=== PATIENT | female | born 1985 | race Caucasian/White ===

== ENCOUNTER → 2020-07-29 | Outpatient (CLI) | payer OTHER ==
[~2020-07-29] MED LIST: CEPHALEXIN500 MG PO; HYDROCODON-ACE1 EAC4 PO; NAPROSYN EC 50500 MG PO; XARELTO10 MG PO
[2020-07-29 10:49] LABS: HEMOGLOBIN 12.4 gm/dl (12.3-15.3); RED BLOOD COUNT 5.08 M/UL (4.00-5.10); WHITE BLOOD COUNT 6.2 K/UL (4.5-11.0)
== END ==
LOC: OPSV2 10:00
PROVIDERS: Obstetrics & Gynecology
DX: Z01.812 Encounter for preprocedural laboratory examination (principal); N81.6 Rectocele
CPT/HCPCS: 36415; 81001; 85025

== ENCOUNTER 2020-08-03 11:32 | Day surgery (SDC) | payer OTHER ==
[~2020-08-03] VITALS: Ht 165.1 cm; Wt 68.0 kg
[2020-08-03] MEDS ORDERED: HYDROCODON-ACE1 EAC4 PO (16:33)
[2020-08-03] MEDS ORDERED: NAPROSYN EC 50500 MG PO (16:33)
--- NOTE | 2020-08-03 19:42 | NUR ---
IS GIVEN,PATIENT REACHED 1500ML, INSTRUCTED TO USE Q1H 10X WA. BILAT CALF SCDs PLACED ON.
[2020-08-04 04:23] LABS: HEMOGLOBIN 11.3 gm/dl (12.3-15.3)
[2020-08-04] MEDS ORDERED: XARELTO10 MG PO (08:03)
[2020-08-04] MEDS ORDERED: CEPHALEXIN500 MG PO (08:12)
== END 2020-08-04 11:25 | disposition home or self-care (01) ==
LOC: OR 11:32 → MED SURG 4 17:29 → OR 08-04 11:25
PROVIDERS: Obstetrics & Gynecology
PROC: 0JQC0ZZ Repair Pelvic Region Subcutaneous Tissue and Fascia, Open Approach (ICD-10-PCS; principal; 2020-08-03 13:00)
PROC: 0UBMXZZ Excision of Vulva, External Approach (ICD-10-PCS; 2020-08-03 13:00)
PROC: 3E0T3BZ Introduction of Anesthetic Agent into Peripheral Nerves and Plexi, Percutaneous Approach (ICD-10-PCS; 2020-08-03 13:00)
DX: N81.6 Rectocele (principal); N90.60 Unspecified hypertrophy of vulva; K46.9 Unspecified abdominal hernia without obstruction or gangrene; N89.8 Other specified noninflammatory disorders of vagina; G89.18 Other acute postprocedural pain; Z20.822 Contact with and (suspected) exposure to COVID-19; Z86.711 Personal history of pulmonary embolism
CPT/HCPCS: 36415; 84703; 85014; 85018; 87086; C1769; J0690; J1100; J2250; J2405; J2704; J2795; J3010; J7120